=== PATIENT | female | born 1960 ===

== ENCOUNTER 2017-12-30 07:54 | Outpatient (CLI) | payer OTHER ==
[~2017-12-30 07:54] MED LIST: IODIXANOL 320 MG/ML 100 ML VIAL.; LIDOCAINE 2% 20 ML VIAL.
[2017-12-30 08:35] LABS: ADD MAN DIFF? NO
[2017-12-30 08:44] LABS: BASO # 0.1 x10^3/uL (0.0-0.2); BASO % 1 % (0-3); EOS # 0.3 x10^3/uL (0.0-0.7); EOS % 4 % (0-3); HEMATOCRIT 44.4 % (36.0-47.0); HEMOGLOBIN 15.3 g/dL (12.0-15.5); LYMPH # 2.4 x10^3/uL (1.0-4.8); LYMPH % 30 % (24-48); MEAN CORPUSCULAR HEMOGLOBIN 32 pg (25-35); MEAN CORPUSCULAR HGB CONC 34 g/dL (31-37); MEAN CORPUSCULAR VOLUME 94 fL (79-100); MONO # 0.6 x10^3/uL (0.0-1.1); MONO % 7 % (0-9); NEUT # 4.7 x10^3uL (1.8-7.7); NEUT % 59 % (31-73); PLATELET COUNT 184 x10^3/uL (140-400); RED BLOOD COUNT 4.74 x10^6/uL (3.50-5.40); RED CELL DISTRIBUTION WIDTH 13.5 % (11.5-14.5)
[2017-12-30 08:55] LABS: INR 1.1 (0.8-1.1); PROTHROMBIN TIME PATIENT 13.9 SEC (11.7-14.0)
[2017-12-30 08:56] LABS: MAGNESIUM 1.8 mg/dL (1.8-2.4)
[2017-12-30 09:09] LABS: CHOLESTEROL 124 mg/dL (0-200); CHOLESTEROL/HDL RATIO 2.8; HDLC 44 mg/dL (40-60); LDLC 56 mg/dL (0-100); NON-HDL CHOLESTEROL 80 mg/dL (0-129); TRIGLYCERIDES 121 mg/dL (0-150); VLDLC 24 mg/dL (0-40)
[2017-12-30] MEDS ORDERED: VERAPAMIL 5 MG/2 ML VIAL. (09:10)
[2017-12-30] MEDS ORDERED: fentaNYL PF VIAL 100 MCG/2 ML VIAL (09:10)
[2017-12-30] MEDS ORDERED: HEPARIN for IV BOLUS 10,000 UNIT/10 ML VIAL. (09:10)
[2017-12-30] MEDS ORDERED: MIDAZOLAM HCL/PF 2 MG/2 ML VIAL. (09:10)
[2017-12-30] MEDS ORDERED: NITROGLYCERIN 200 MCG/2 ML SYRINGE FOR CATH/VASC LAB. (09:10)
[2017-12-30 09:22] LABS: PARTIAL THROMBOPLASTIN TIME 29 SEC (24-38)
[2017-12-30] MEDS: HEPARIN for IV BOLUS 10,000 UNIT/10 ML VIAL. IART (09:41)
[2017-12-30] MEDS: NITROGLYCERIN 200 MCG/2 ML SYRINGE FOR CATH/VASC LAB. IART (09:41)
[2017-12-30] MEDS: IODIXANOL 320 MG/ML 100 ML VIAL. IART (09:42)
[2017-12-30] MEDS: VERAPAMIL 5 MG/2 ML VIAL. IART (09:42)
[2017-12-30] MEDS: fentaNYL PF VIAL 100 MCG/2 ML VIAL IV (09:43)
[2017-12-30] MEDS: MIDAZOLAM HCL/PF 2 MG/2 ML VIAL. IV (09:43)
[2017-12-30] MEDS: LIDOCAINE 2% 20 ML VIAL. IJ (09:45)
[2017-12-30 11:07] LABS: ALBUMIN 3.9 g/dL (3.4-5.0); ALK PHOS 90 U/L (46-116); ALT (SGPT) 51 U/L (14-59); AST (SGOT) 34 U/L (15-37); CREATININE 0.8 mg/dL (0.6-1.0); GFR 74.2; TOTAL BILIRUBIN 0.3 mg/dL (0.2-1.0); TOTAL PROTEIN 7.7 g/dL (6.4-8.2)
[2017-12-30 11:10] LABS: ANION GAP 11 (6-14); BLOOD UREA NITROGEN 15 mg/dL (7-20); BUN/CREATININE RATIO 19 (6-20); CALCIUM 9.8 mg/dL (8.5-10.1); CARBON DIOXIDE 25 mmol/L (21-32); CHLORIDE 106 mmol/L (98-107); GLUCOSE 110 mg/dL (70-99); POTASSIUM 4.4 mmol/L (3.5-5.1); SODIUM 142 mmol/L (136-145)
== END 2017-12-30 12:00 | disposition home or self-care (01) ==
LOC: CCL 07:54
DX: R94.39 Abnormal result of other cardiovascular function study (principal); Z90.710 Acquired absence of both cervix and uterus; Z98.890 Other specified postprocedural states; M79.7 Fibromyalgia; Z83.3 Family history of diabetes mellitus; Z72.89 Other problems related to lifestyle; F17.210 Nicotine dependence, cigarettes, uncomplicated; Z79.899 Other long term (current) drug therapy; Z88.6 Allergy status to analgesic agent; E78.2 Mixed hyperlipidemia; E11.9 Type 2 diabetes mellitus without complications; Z79.4 Long term (current) use of insulin; J44.9 Chronic obstructive pulmonary disease, unspecified; Z79.01 Long term (current) use of anticoagulants
CPT/HCPCS: 36415; 80053; 80061; 83735; 85025; 85610; 85730; 93458; 99152; 99153; C1769; C1892; J1644; J2250; J3010; J3490